=== PATIENT | male | born 1955 | race Two or more races ===

== ENCOUNTER 2024-03-28 07:37 | Emergency (ER) | payer OTHER ==
[~2024-03-28] VITALS: Ht 175.3 cm; Wt 81.6 kg
[2024-03-28 08:07] VITALS: BP 160/80; O2SAT 98
[2024-03-28] MEDS ORDERED: AMOXICILLIN500 MG PO (08:12)
[2024-03-28] MEDS ORDERED: IBUPROFEN800 MG PO (08:13)
[2024-03-28] MEDS ORDERED: CETIRIZINE HCL 5 MG/5 ML ML PO ONE (08:45)
[2024-03-28] MEDS ORDERED: KETOROLAC TROMETHAMINE 30 MG VIAL IV ONE (08:45)
[2024-03-28] MEDS ORDERED: METHYLPREDNISOLONE SOD SUCC 125 MG VIAL IV ONE (08:45)
[2024-03-28] MEDS ORDERED: ALLEGRA ALLERG180 MG PO (08:48)
[2024-03-28] MEDS ORDERED: ORALONE5 GM TOP (08:48)
[2024-03-28] MEDS ORDERED: KETOROLAC TROMETHAMINE 60 MG VIAL IM ONE (08:49)
[2024-03-28] MEDS ORDERED: CETIRIZINE HCL 5MG/5ML BLIST.PACK PO ONE (08:50)
[2024-03-28] MEDS ORDERED: METHYLPREDNISOLONE SOD SUCC 125 MG VIAL ONE (08:50)
== END 2024-03-28 09:30 | disposition home or self-care (01) ==
LOC: ER 07:39
DX: K05.10 Chronic gingivitis, plaque induced (principal)
CPT/HCPCS: 96365; 99282; J1885; J3490